=== PATIENT | female | born 1995 | race Two or more races ===

== ENCOUNTER 2024-07-01 22:31 | Emergency (ER) | payer MEDICAID, OTHER ==
[~2024-07-01] VITALS: Ht 162.6 cm; Wt 78.3 kg
[2024-07-01 23:00] VITALS: BP 148/85; PULSE 101; RESP 18; O2SAT 100
== END 2024-07-02 06:55 | disposition left against medical advice (07) ==
LOC: ER 22:31
DX: F41.9 Anxiety disorder, unspecified (principal); Z53.21 Procedure and treatment not carried out due to patient leaving prior to being seen by health care provider